=== PATIENT | male | born 1965 | race Caucasian/White ===

== ENCOUNTER 2016-12-26 08:52 | Emergency (ER) | payer BC ==
[~2016-12-26] VITALS: Ht 188 cm; Wt 93.0 kg
[~2016-12-26 08:52] MED LIST: Z.0.NO CURRENT MEDS
[2016-12-26 09:02] VITALS: BP 128/87; PULSE 70; RESP 16; TEMP 98.3; O2SAT 96
[2016-12-26] MEDS ORDERED: TEMA30CA PO (09:17)
[2016-12-26] MEDS ORDERED: VALA1TAB PO (09:17)
[2016-12-26] MEDS ORDERED: EMTR1TAB2 PO (09:17)
[2016-12-26] MEDS ORDERED: HIVPAK PO (09:17)
--- NOTE | 2016-12-26 09:48 | PD ---
HPI Chief Complaint: Skin Problem Time Seen by Provider: 09:35 Travel History International Travel<30 days: No Contact w/Intl Traveler<30days: No Traveled to known affect area: No History of Present Illness HPI Patient is a 51-year-old male with complaints of pain to left hand digit #3. Patient reports that he noticed some redness to his tip of his third finger 2 days ago. Patient reports that he tried taking a needle and draining his finger , reports that he was unable to drain any pus from his finger. Patient reports that he has had increased pain to his finger increased swelling Patient with no fevers or chills, no other complaints. Patient reports history of paronychia in the past which required drainage, reports "that's why I put a needle into my finger." Tetanus is not up to date. PFSH Past Medical History Autoimmune Disease: Yes (HIV) Influenza Vaccination: Yes Social History Alcohol Use: No Tobacco Use: No Substance Use: No Allergies-Medications (Allergen,Severity, Reaction): Coded Allergies: No Known Allergies (Verified , 12/26/16) Reported Meds & Prescriptions Reported Meds & Active Scripts Active Percocet (Oxycodone-Acetaminophen) 5-325 mg Tab 1 Tab PO Q6H PRN Ibuprofen 600 Mg Tab 600 Mg PO Q6H PRN Keflex (Cephalexin) 500 Mg Cap 500 Mg PO Q6H 10 Days Reported Valacyclovir (Valacyclovir HCl) 1 Gm Tab 1,000 Mg PO DAILY Hiv Support Therapy Pack (Nutritional Supplements) 1 Wood Wood 1 Tab PO DAILY Odefsey (Vcscidqzbmbhj-Asnioirmetw-Giqrrqwus Alafenam) 200-200-25 Mg Tab 1 Tab PO DAILY Temazepam 30 Mg Cap 30 Mg PO HS PRN Review of Systems General / Constitutional: No: Fever Eyes: No: Visual changes HENT: No: Headaches Cardiovascular: No: Chest Pain or Discomfort Respiratory: No: Shortness of Breath Gastrointestinal: No: Abdominal Pain Genitourinary: No: Dysuria Musculoskeletal: Positive: Pain (left hand digit #3) Skin: No Rash Neurologic: No: Weakness Psychiatric: No: Depression Endocrine: No: Polydipsia Hematologic/Lymphatic: No: Easy Bruising Physical Exam Narrative GENERAL: nad, nontoxic SKIN: Warm and dry. HEAD: Atraumatic. Normocephalic. CARDIOVASCULAR: Regular rate and rhythm. No murmur appreciated. RESPIRATORY: No accessory muscle use. Clear to auscultation. Breath sounds equal bilaterally. GASTROINTESTINAL: Abdomen soft, non-tender, nondistended. Hepatic and splenic margins not palpable. MUSCULOSKELETAL: No obvious deformities. No clubbing. No cyanosis. left hand: pt with early paronychia versus felon to left hand digit #3 - no obvious pus or drainable abscess collection, no flexor tenosynovitis appreciated, pulses intact , neurovascularly intact; Right hand: normal exam NEUROLOGICAL: Awake and alert. Motor grossly within normal limits. Normal speech. PSYCHIATRIC: Appropriate mood and affect; insight and judgment normal. Data Data Last Documented VS Vital Signs Date Time Temp Pulse Resp B/P Pulse Ox O2 Delivery O2 Flow Rate FiO2 12/26/16 09:02 98.3 70 16 128/87 96 Orders Cephalexin (Keflex) (12/26/16 10:00) Ibuprofen (Motrin) (12/26/16 10:00) Tetanus/Diphtheria Tox Adult (Tetanus/Di (12/26/16 10:00) [facility] Medical Decision Making Medical Screen Exam Complete: Yes Emergency Medical Condition: Yes Interpretation(s) Vital Signs Date Time Temp Pulse Resp B/P Pulse Ox O2 Delivery O2 Flow Rate FiO2 12/26/16 09:02 98.3 70 16 128/87 96 Differential Diagnosis cellulitis vs paronychia versus felon Narrative Course Patient is a 51-year-old male with complaint of left hand digit #3 pain. Patient reports that he noticed some redness to his tip of his third finger 2 days ago. Patient reports that he tried taking a needle and draining his finger , reports that he was unable to drain any pus from his finger. Patient reports that he has had increased pain to his finger increased swelling. Patient with no fevers or chills, no other complaints. Patient reports history of paronychia in the past which required drainage, reports "that's why I put a needle into my finger." Plan to update patient's tetanus at this time. Patient with what appears to be a early onset paronychia versus a felon, there is no area of drainable pus or abscess, discussed need for antibiotics and warm compresses. Patient will return to the emergency room or primary care doctor in 48 hours for reevaluation of his symptoms. Signs and symptoms of when to return to the emergency room was reviewed with patient in detail Diagnosis Primary Impression: Leigh Patient Instructions: General Instructions Additional Instructions: Please follow-up with primary care doctor Return to emergency room in 48 hours for reevaluation of your symptoms Return to emergency room earlier if you develop progressing symptoms, increased swelling, pain or discharge from finger Please take all medications as prescribed Do not drive with taking narcotic pain medications Med/Other Pt SpecificInfo: Prescription(s) given Scripts Oxycodone-Acetaminophen (Percocet)5-325 mg Tab1 Tab PO Q6H PRN (PAIN) #10 TAB Ref 0 Prov:Maranda Davis DO 12/26/16 Ibuprofen 600 Mg [id number] Mg PO Q6H PRN (Pain/Inflammation) #40 TAB Ref 0 Prov:Maranda Davis DO 12/26/16 Cephalexin (Keflex)500 Mg [id number] Mg PO Q6H 10 Days Ref 0 Prov:Maranda Davis DO 12/26/16 Disposition: 01 DISCHARGE HOME Condition: Fair Maranda Davis DO Dec 26, 2016 09:48
[2016-12-26] MEDS ORDERED: CEPH-460 PO (09:51)
[2016-12-26] MEDS ORDERED: PERC5TAB12 PO (09:51)
[2016-12-26] MEDS ORDERED: IBUP-232 PO (09:51)
[2016-12-26] MEDS ORDERED: TETANUS/DIPHTHERIA TOXOID ADULT 0.5 ML VIAL IM ONE (10:00)
[2016-12-26] MEDS ORDERED: CEPHALEXIN MONOHYDRATE 500 MG CAP PO ONE (10:00)
[2016-12-26] MEDS ORDERED: IBUPROFEN 600 MG TAB PO ONE (10:00)
== END 2016-12-26 10:16 | disposition home or self-care (01) ==
LOC: PHED 08:52
DX: L03.012 Cellulitis of left finger (principal); B20 Human immunodeficiency virus [HIV] disease; Z23 Encounter for immunization
CPT/HCPCS: 90471; 90714

== ENCOUNTER 2016-12-28 06:47 | Emergency (ER) | payer BC ==
[~2016-12-28] VITALS: Ht 188 cm; Wt 93.6 kg
[~2016-12-28 06:47] MED LIST changes: +CEPH-460 PO; +EMTR1TAB2 PO; +HIVPAK PO; +IBUP-232 PO; +PERC5TAB12 PO; +TEMA30CA PO; +VALA1TAB PO; -Z.0.NO CURRENT MEDS
[2016-12-28 06:59] VITALS: BP 128/88; PULSE 85; RESP 14; TEMP 98.1; O2SAT 98
[2016-12-28] MEDS ORDERED: BACT800T5 PO (07:27)
--- NOTE | 2016-12-28 07:31 | PD ---
HPI . Recheck Chief Complaint: Skin Problem Time Seen by Provider: 07:18 Travel History International Travel<30 days: No Contact w/Intl Traveler<30days: No Traveled to known affect area: No History of Present Illness HPI Patient is here for routine 2 day recheck of a felon on the left third finger. He was seen here 2 days ago and started on Keflex. He was also given prescriptions for Percocet and ibuprofen. He reports that he is taking his medications as directed. However, he seems to be getting worse rather than better. He states that the pain is now radiating all throughout his body. He does not have fever. He does report that he has been soaking his finger several times a day in warm Epsom salts and water. [id number]: Left third finger QUALITY: Throbbing DURATION: 4 days TIMING: Gradually worsening PFSH Past Medical History Autoimmune Disease: Yes (HIV) Social History Alcohol Use: No Tobacco Use: No Substance Use: No Allergies-Medications (Allergen,Severity, Reaction): Coded Allergies: No Known Allergies (Verified , 12/26/16) Reported Meds & Prescriptions Reported Meds & Active Scripts Active Percocet (Oxycodone-Acetaminophen) 5-325 mg Tab 1 Tab PO Q6H PRN Ibuprofen 600 Mg Tab 600 Mg PO Q6H PRN Keflex (Cephalexin) 500 Mg Cap 500 Mg PO Q6H 10 Days Reported Valacyclovir (Valacyclovir HCl) 1 Gm Tab 1,000 Mg PO DAILY Hiv Support Therapy Pack (Nutritional Supplements) 1 Wood Wood 1 Tab PO DAILY Odefsey (Bfbdvdczxqtys-Iydzgnkkifl-Edbgyrayn Alafenam) 200-200-25 Mg Tab 1 Tab PO DAILY Temazepam 30 Mg Cap 30 Mg PO HS PRN Review of Systems Except as stated in HPI: all other systems reviewed are Neg General / Constitutional: No: Fever, Chills Musculoskeletal: Positive: Pain (pain starts at the tip of the left third finger and radiates through his body) Skin: Positive Change in Pigmentation, Positive Other (swelling) Physical Exam Narrative GENERAL: Awake and alert and in no acute distress. SKIN: Warm and dry. Erythema and swelling at the tip of the left third finger. There is no fluctuant area. The tip of the finger is diffusely red and swollen. CARDIOVASCULAR: Regular rate and rhythm. RESPIRATORY: No accessory muscle use. MUSCULOSKELETAL: No obvious deformities. No edema. NEUROLOGICAL: Awake and alert. No obvious cranial nerve deficits. Motor grossly within normal limits. Normal speech. PSYCHIATRIC: Appropriate mood and affect; insight and judgment normal. Data Data Last Documented VS Vital Signs Date Time Temp Pulse Resp B/P Pulse Ox O2 Delivery O2 Flow Rate FiO2 12/28/16 06:59 98.1 85 14 128/88 98 Room Air MDM Medical Decision Making Medical Screen Exam Complete: Yes Emergency Medical Condition: Yes Medical Record Reviewed: Yes (patient was seen here 2 days ago with a 2 day history of pain and swelling at the tip of his left middle finger. He was treated with Keflex, Motrin and Percocet.) Differential Diagnosis My differential diagnosis includes but is not limited to localized wound infection, cellulitis, abscess Narrative Course Patient presents with now a 4 day history of pain and swelling at the tip of his left middle finger. He reports that it is worth further than better. I will change his antibiotic from Keflex to Septra. Diagnosis Primary Impression: Felon of finger Patient Instructions: Cellulitis (DC), General Instructions Additional Instructions: Stop the cephalexin. Continue warm water soaks several times a day. Med/Other Pt SpecificInfo: Prescription(s) given Scripts Sulfamethoxazole-Trimethoprim (Bactrim DS)800-160 Mg Tab1 Tab PO BID #20 TAB Ref 0 Prov:Cassie Mccoy MD 12/28/16 Disposition: 01 DISCHARGE HOME Condition: Stable Cassie Mccoy MD Dec 28, 2016 07:31
== END 2016-12-28 07:40 | disposition home or self-care (01) ==
LOC: PHED 06:47
DX: L03.012 Cellulitis of left finger (principal)
CPT/HCPCS: 99282; 99283